=== PATIENT | male | born 1950 | race Caucasian/White ===

== ENCOUNTER → 2017-11-27 | Outpatient (CLI) | payer OTHER, MEDICARE | LOC: FIMAGING 11:41 | PROVIDERS: ATTEND Orthopaedic Surgery | DX: Z01.818 Encounter for other preprocedural examination (principal); M16.11 Unilateral primary osteoarthritis, right hip ==

== ENCOUNTER 2017-11-30 10:46 | Inpatient (IN) | payer OTHER, MEDICARE ==
[~2017-11-30 10:46] MED LIST: POVIDONE-IODINE 20 ML in SODIUM CL IRRIG SOLUTION 500 ML IRR ONE; ROPIVACAINE 0.2% 80 MG, EPINEPHrine 0.2 MG, KETOROLAC TROMETHAMINE 30 MG in SYRINGE 0 ML IU ONE; TRANEXAMIC ACID 1,000 MG in NS (SYRINGE) 50 ML IV ONE; VANCOMYCIN HCL/NORMAL SALINE 250 ML IV SCH; VANCOMYCIN PHARMACY TO DOSE MISC ONE
[2017-11-30] MEDS ORDERED: LR 1,000 ML IV ONE (14:00)
[2017-11-30 14:06] VITALS: BP 168/94; PULSE 100; TEMP 97.7; O2SAT 96
[2017-11-30 14:20] VITALS: RESP 16
[2017-11-30] MEDS ORDERED: DEXAMETHASONE 4 MG/ML VIAL IVP ONE (14:21)
[2017-11-30] MEDS ORDERED: ACETAMINOPHEN 325 MG TAB PO ONE (14:21)
[2017-11-30] MEDS ORDERED: FAMOTIDINE 20 MG TAB PO ONE (14:21)
[2017-11-30] MEDS ORDERED: VANCOMYCIN HCL/NORMAL SALINE 250 ML IV SCH (15:00)
[2017-12-01] MEDS ORDERED: BUPIVACAINE 0.25% 30 ML SDV ONE (14:04)
== END 2017-11-30 17:01 | disposition home or self-care (01) | DRG 554 ==
LOC: F3N 13:31
PROVIDERS: ADMIT Orthopaedic Surgery; ATTEND Orthopaedic Surgery
DX: M16.11 Unilateral primary osteoarthritis, right hip (principal); Z53.8 Procedure and treatment not carried out for other reasons
CPT/HCPCS: J0171; J1100; J1885; J2795; J3370

== ENCOUNTER 2017-12-01 12:35 | Inpatient (IN) | payer OTHER, MEDICARE ==
[~2017-12-01 12:35] MED LIST changes: +ACETAMINOPHEN 325 MG TAB PO ONE; +DEXAMETHASONE 4 MG/ML VIAL IVP ONE; +FAMOTIDINE 20 MG TAB PO ONE; -VANCOMYCIN HCL/NORMAL SALINE 250 ML IV SCH
[2017-12-01] MEDS ORDERED: VANCOMYCIN HCL/NORMAL SALINE 250 ML IV ONE (13:00)
[2017-12-01] MEDS ORDERED: LR 1,000 ML IV ONE (13:05)
[2017-12-01] MEDS ORDERED: BUPIVACAINE/EPI 0.5% 30 ML SDV ONE (13:19)
[2017-12-01] MEDS ORDERED: MIDAZOLAM 2 MG/2 ML VIAL IVP ONE (13:19)
[2017-12-01] MEDS ORDERED: POLYMYXIN B SULFATE 500,000 UNIT/10 ML SYR IRR ONE (13:21)
[2017-12-01] MEDS ORDERED: BACITRACIN 50,000 UNITS/10 ML SYR IRR ONE (13:21)
--- NOTE | 2017-12-01 13:30 | PDANEPAE ---
ANE History of Present Illness djd hip s/f JULIET ANE Past Medical History - Cardiovascular History Hx Hypertension: No Hx Arrhythmias: No Hx Chest Pain: No Hx Coronary Artery / Peripheral Vascular Disease: No Hx CHF / Valvular Disease: No Hx Palpitations: No - Pulmonary History Hx COPD: No Hx Asthma/Reactive Airway Disease: No Hx Recent Upper Respiratory Infection: No Hx Oxygen in Use at Home: No Hx Sleep Apnea: No Pulmonary History Comment: NASAL POLYPS. CHILDHOOD ASTHMA. ALLERGIES ENVIRONMENTAL - Neurologic History Hx Cerebrovascular Accident: No Hx Seizures: No Hx Dementia: No - Endocrine History Hx Diabetes: No - Renal History Hx Renal Disorders: No - Liver History Hx Hepatic Disorders: No - Neurological & Psychiatric Hx Hx Neurological and Psychiatric Disorders: No - Cancer History Hx Cancer: No - Congenital Disorder History Hx Congenital Disorders: No - GI History Hx Gastrointestinal Disorders: No - Other Health History Other Health History: NEG - Chronic Pain History Chronic Pain: Yes (R HIP) - Surgical History Prior Surgeries: NASAL POLYPS REMOVED ANE Review of Systems Review of Systems: - Exercise capacity Exercise capacity: >=4 METS ANE Patient History - Allergies Allergies/Adverse Reactions: Penicillins Allergy (Verified 11/22/17 16:15) RASH,SWELLING,DROWSINESS Sulfa (Sulfonamide Antibiotics) Allergy (Verified 11/22/17 16:15) RASH,SWELLING,DROWSINESS - Home Medications Home medications: home medication list seen and reviewed Home Medications: Aleve 11/22/17 [Last Taken 11/29/17] Rhinocort Allergy 11/22/17 [Last Taken 11/30/17 10:30] Tylenol ES 500 mg (*) 1 gm PO 11/30/17 [Last Taken 11/30/17 09:00] - NPO status NPO Status: no food or drink >8 hours - Anes Hx Anes Hx: no prior problems - Smoking Hx Smoking Status: Never smoked - Alcohol Use Alcohol Use: Occasionally - Family Anes Hx Family Anes Hx: none Family Hx Anesthesia Complications: NEG ANE Labs/Vital Signs - Labs - CBC WBC: ok - Vital Signs Height: 170.18 cm Weight: 72.575 kg ANE Physical Exam - Airway Mallampati Score: Class 2 Mouth exam: normal dental/mouth exam - Pulmonary Pulmonary: no respiratory distress - Cardiovascular Cardiovascular: regular rate and rhythym - ASA Status ASA Status: I ANE Anesthesia Plan Anesthesia Plan: spinal
--- NOTE | 2017-12-01 13:44 | PDHPUP ---
History & Physical Update H&P update statement: This history and physical update is based on an assessment of the patient which was completed after admission or registration (within 24 hours), but prior to the surgery/procedure. H&P update: H&P reviewed & patient examined, no change in patient's condition since H&P completed
[2017-12-01] MEDS ORDERED: MIDAZOLAM 2 MG/2 ML VIAL ONE (13:48)
[2017-12-01] MEDS ORDERED: fentaNYL 100 MCG/2 ML INJ ONE ×2 (13:57→17:21)
[2017-12-01] MEDS ORDERED: PROPOFOL/EMULSION 500 MG/50 ML BOTTLE IV ONE ×2 (14:23→15:57)
[2017-12-01] MEDS ORDERED: DEXAMETHASONE 4 MG/ML VIAL ONE ×2 (15:30)
[2017-12-01] MEDS ORDERED: DEXAMETHASONE 4 MG/ML VIAL IVP PRN (16:48)
[2017-12-01] MEDS ORDERED: ONDANSETRON 4 MG/2 ML VIAL IVP PRN ×2 (16:48→17:07)
[2017-12-01] MEDS ORDERED: ALBUTEROL 3 ML DEYVIAL IH PRN (16:48)
[2017-12-01] MEDS ORDERED: OXYCODONE/APAP 5/325 TAB PO PRN (16:48)
[2017-12-01] MEDS ORDERED: LR 500 ML IV PRN (16:48)
[2017-12-01] MEDS ORDERED: PHENYLEPHRINE HCL 100 MCG/ML SYR IVP PRN (16:48)
[2017-12-01] MEDS ORDERED: NALOXONE HCL 0.4 MG/ML INJ IVP PRN (16:48)
[2017-12-01] MEDS ORDERED: HYDROCODONE/APAP 5/325 TAB PO PRN (16:48)
[2017-12-01] MEDS ORDERED: ACETAMINOPHEN 500 MG TAB PO PRN (16:48)
[2017-12-01] MEDS ORDERED: MEPERIDINE 25 MG/ML SYR IVP PRN (16:48)
[2017-12-01] MEDS ORDERED: PROMETHAZINE HCL 25 MG/ML INJ IVP PRN ×2 (16:48→17:07)
[2017-12-01] MEDS ORDERED: METOCLOPRAMIDE 10 MG/2 ML VIAL IVP PRN ×2 (16:48→17:07)
[2017-12-01] MEDS ORDERED: LACTULOSE 20 GM/30 ML UDCUP PO PRN (17:07)
[2017-12-01] MEDS ORDERED: DIPHENOXYLATE/ATROPINE LOMOTIL 1 TAB PO PRN (17:07)
[2017-12-01] MEDS ORDERED: MAGNESIUM HYDROXIDE 30 ML UDCUP PO PRN (17:07)
[2017-12-01] MEDS ORDERED: CYCLOBENZAPRINE 10 MG TAB PO PRN (17:07)
[2017-12-01] MEDS ORDERED: ONDANSETRON DISINTEGRATING 4 MG TAB PO PRN (17:07)
[2017-12-01] MEDS ORDERED: oxyCODONE IR 5 MG TAB PO PRN (17:07)
[2017-12-01] MEDS ORDERED: diphenhydrAMINE 25 MG CAP PO PRN (17:07)
[2017-12-01] MEDS ORDERED: POLYETHYLENE GLYCOL 3350 17 GM PKT PO PRN (17:07)
[2017-12-01] MEDS ORDERED: TEMAZEPAM 15 MG CAP PO PRN (17:07)
[2017-12-01] MEDS ORDERED: PROMETHAZINE HCL 25 MG SUPPR PR PRN (17:07)
[2017-12-01] MEDS ORDERED: BISACODYL 10 MG SUPP PR PRN (17:07)
--- NOTE | 2017-12-01 17:16 | POSTOPPROG ---
Post Op Note Date of Operation: 12/01/17 Surgeon: Moe Waite Director Of Contracts: DIPTI Shine Anesthesiologist: MD Tariq Anesthesia: GET(General Endotracheal) Pre-op Diagnosis: R hip OA Post-op Diagnosis: same Procedure: R anterior JULIET with SAAD Inf/Abcess present in the surg proc area at time of surgery?: No EBL: 100-500 Drains: Hemovac
--- NOTE | 2017-12-01 17:17 | POSTANESTH ---
Post Anesthetic Evaluation Cardiovascular Status: Normal, Stable Respiratory Status: Normal, Stable Level of Consciousness/Mental Status: Can Participate in Eval Pain Control: Adequate, Prn Tx Ordered Nausea/Vomiting Control: Adequate, Prn Tx Ordered Complications Possibly Related to Anesthesia: None Noted
[2017-12-01] MEDS: fentaNYL 100 MCG/2 ML INJ IVP PRN ×2 (17:22→17:27)
[2017-12-01] MEDS ORDERED: LR 1,000 ML IV SCH (17:30)
[2017-12-01] MEDS ORDERED: HYDROmorphONE/DILAUDID 1 MG/ML INJ ONE (17:38)
[2017-12-01] MEDS: HYDROmorphONE/DILAUDID 1 MG/ML INJ IVP PRN ×3 (17:42→18:16)
[2017-12-01] MEDS: ACETAMINOPHEN 325 MG TAB PO SCH (18:39)
[2017-12-01] MEDS: SENNOSIDES/DOCUSATE SODIUM TAB PO SCH (21:32)
[2017-12-01] MEDS: FAMOTIDINE 20 MG TAB PO SCH (21:32)
[2017-12-01] MEDS: ASPIRIN 325 MG TAB PO SCH (21:32)
[2017-12-02] MEDS: ACETAMINOPHEN 325 MG TAB PO SCH ×3 (00:35→12:46)
[2017-12-02] MEDS: VANCOMYCIN HCL/NORMAL SALINE 250 ML IV SCH ×2 (00:45→12:47)
[2017-12-02 03:17] VITALS: TEMP 97.4
[2017-12-02 03:21] VITALS: RESP 16
[2017-12-02] MEDS: ASPIRIN 325 MG TAB PO SCH (08:24)
[2017-12-02] MEDS: FAMOTIDINE 20 MG TAB PO SCH (08:24)
[2017-12-02] MEDS: SENNOSIDES/DOCUSATE SODIUM TAB PO SCH (08:24)
--- NOTE | 2017-12-02 10:31 | SOAPPROG ---
[facility] Progress Note Assessment/Plan: Assessment: 67-year-old male postop day 1 status post right anterior approach total hip arthroplasty with Patrice robotic guidance Plan: Weight-bearing as tolerated with assistance and a PT /OT Incentive spirometry 10 times per hr Analgesics as needed, seems very comfortable, minimize narcotics 325 mg of aspirin for DVT prophylaxis given this morning, started 2 weeks of wax 40 mg subcu daily x2 weeks followed by full dose aspirin for 2 weeks Disposition home today home PT 12/02/17 10:27 Subjective: No acute events overnight, pain well controlled. Patient feels substantially better compared to preoperative pain level. Denies or chills nausea vomiting chest pain shortness of breath numbness or tingling Objective: Vital Signs Temp Pulse Resp BP Pulse Ox 36.3 C 69 16 94/53 L 98 12/02/17 08:10 12/02/17 08:10 12/02/17 08:10 12/02/17 08:10 12/02/17 08:10 Laboratory Results 12/02/17 04:20 12/01/17 12/02/17 12/03/17 05:59 05:59 05:59 Intake Total 1530 Output Total 730 40 Balance 800 -40 Awake alert oriented x3 no acute distress Incisions clean dry intact no erythema or signs of infection Drain site with moderate drainage this morning, a compressive dressing in place , no active bleeding Thigh and calf compartments soft compressible without pain Sensation intact to light touch from L3-S1 Motor intact to EHL FHL tibialis anterior gastrocsoleus Palpable DP PT pulses - Time Spent With Patient Time Spent With Patient: 15 - Pending Discharge Pending Discharge Within 24 Hours: Yes Pending Discharge Date: 12/02/17 Pending Discharge Time: 11:00 ICD10 Worksheet Patient Problems: Problems Problem Status Onset Osteoarthritis of right hip Acute
--- NOTE | 2017-12-02 10:50 | ASMTCMCOM ---
CM Note CM Note Notes: PT/OT have cleared pt to DC home with no HC needs. Date Signed: 12/02/2017 10:49 AM Electronically Signed By:Tasia Martinez LCSW
[2017-12-02 11:56] VITALS: BP 107/62; PULSE 67; O2SAT 96
--- NOTE | 2017-12-05 20:17 | GDS ---
[f rep st] DISCHARGE SUMMARY ADMITTING DIAGNOSIS: Right hip osteoarthritis. DISCHARGE DIAGNOSIS: Right hip osteoarthritis. PROCEDURE PERFORMED: Right anterior approach total hip arthroplasty, SAAD robotic guidance. HOSPITAL COURSE: Patient was admitted on December 01, 2017, underwent the above procedure and tolera chiquis it well. Admitted for postoperative pain control and observation. The patient had very little p ain after the procedure. Provided aspirin for DVT prophylaxis and vancomycin for infection prophylax is. He worked well with physical therapy. Discharge home on December 02, 2017 after being deemed sa for discharge. CONDITION UPON DISCHARGE: Stable. DISCHARGE DISPOSITION: Home with home PT. /[id number]/MODL
== END 2017-12-02 14:59 | disposition home or self-care (01) | DRG 470 ==
LOC: F3N 12:35
PROVIDERS: ADMIT Orthopaedic Surgery; ATTEND Orthopaedic Surgery
PROC: 8E0Y0CZ Robotic Assisted Procedure of Lower Extremity, Open Approach (ICD-10-PCS; principal; 2017-12-01 14:00)
PROC: 0SR904Z Replacement of Right Hip Joint with Ceramic on Polyethylene Synthetic Substitute, Open Approach (ICD-10-PCS; principal; 2017-12-01 14:00)
DX: M16.11 Unilateral primary osteoarthritis, right hip (principal); G89.18 Other acute postprocedural pain
CPT/HCPCS: 97161-GP; 97165-GO; 97535-GO; G8978-GP-CI; G8979-GP-CI; G8980-GP-CI; G8987-GO-CI; G8988-GO-CI; G8989-GO-CI; J0171; J1100; J1170; J1885; J2250; J2270; J2370; J2405; J2704; J2795; J3010; J3370